=== PATIENT | female | born 1960 | race Caucasian/White ===

== ENCOUNTER 2016-08-10 15:49 | Emergency (ER) | payer BC ==
[~2016-08-10 15:49] MED LIST: AMBIEN10 M1 PO; AMBIEN5 MG PO; BACTRIM DS TAB1 EAC2 PO; CHANTIX1 MG; COMBIVENT RESPIM4 G1 IH; DEMADEX20 MG; DOXEPIN HCL50 M1 PO; DOXEPIN HCL50 MG; HYDROXYZINE HCL50 M1 PO; HYDROXYZINE HCL50 MG; JANUVIA100 MG PO; K-DUR20 MEQ; METFORMIN PO; NORCO 5/325 TAB1 TAB PO; PHENERGAN W/CO120 M1 PO; VENTOLIN HFA18 GM IH; VITAMIN C1000 M1 PO; VITAMIN D5000 UNI1 PO; VITAMIN D50000 UNIT PO; WELLBUTRIN XL150 MG
[2016-08-10 16:23] LABS: BASO % 0.3 % (0-2); EOS % 3.5 % (0-7); EOSINOPHIL ABSOLUTE COUNT 0.4 tho/cmm (0.0-0.7); HCT-HEMATOCRIT 48.8 % (34.0-49.0); IMMATURE GRANULOCYTES ABSOLUTE 0.02 tho/cmm (0-0.03); IMMATURE GRANULOCYTES PERCENT 0.2 % (0-0.3); LYMPH % 37.7 % (20-45); LYMPH ABSOLUTE COUNT 4.3 tho/cmm (0.8-4.5); MCH (MEAN CORPUSCULAR HGB) 32.8 pg (28.0-32.0); MCHC MEAN CORPUSCULAR HGB CONC 34.8 % (32.0-36.0); MCV (MEAN CELL VOLUME) 94.2 fl (82.0-96.0); MEAN PLATELET VOLUME 10.3 cmc (9.4-12.4); MONO % 5.5 % (0-12); MONOCYTE ABSOLUTE COUNT 0.6 tho/cmm (0.0-1.2); NEUTROPHILS % 52.8 % (40-80); PLATELET COUNT 306 tho/cmm (150-450); RED BLOOD COUNT 5.18 mil/cmm (4.00-5.20); RED CELL DISTRIBUTION WIDTH 12.5 % (12.4-16.4); WHITE BLOOD COUNT 11.4 tho/cmm (4.0-10.0)
[2016-08-10 16:37] LABS: ANION GAP 11 mmol/L (0-20); BLOOD UREA NITROGEN 16 mg/dl (6-24); CALCIUM 9.4 mg/dl (8.5-10.5); CARBON DIOXIDE-VENOUS 30 mmol/L (22-32); CHLORIDE 101 mmol/l (96-110); CREATININE 0.86 mg/dl (0.50-1.10); GLUCOSE 109 mg/dL (70-110); POTASSIUM 4.6 mmol/L (3.7-5.1); SODIUM 137 mmol/L (135-145); eGFR VALUE FOR BLACK 86 mL/Min
== END 2016-08-10 17:10 ==
LOC: EDMED 15:49
PROVIDERS: Emergency Medicine
DX: R20.9 Unspecified disturbances of skin sensation (principal); E11.9 Type 2 diabetes mellitus without complications; I10 Essential (primary) hypertension; F17.200 Nicotine dependence, unspecified, uncomplicated; Z90.710 Acquired absence of both cervix and uterus; Z90.49 Acquired absence of other specified parts of digestive tract